=== PATIENT | female | born 1985 | race Caucasian/White ===

== ENCOUNTER 2016-07-25 09:39 | Emergency (ER) | payer OTHER ==
[~2016-07-25] VITALS: Ht 167.6 cm; Wt 86.2 kg
--- NOTE | 2016-07-25 10:31 | ED PSYCHIATRIC COMPLAINT ---
History of Present Illness General Chief Complaint: ETOH/Drug Related Complaint Stated Complaint: I'M DYING Source: patient, family, old records, EMS Exam Limitations: no limitations Vital Signs & Intake/Output Vital Signs & Intake/Output Vital Signs Date Time Temp Pulse Resp B/P Pulse O2 O2 Flow FiO2 Ox Delivery Rate 07/25 0946 137 20 138/94 99 Room Air Allergies Coded Allergies: No Known Allergies (07/25/16) Reconcile Medications No Known Home Medications Triage Note: PT BIBA FROM HOME WHERE SHE CALLED 911 BECAUSE HER FRIEND GAVE HER ONE PILL SHE STATES CBD OIL BUT NOT SURE IF THAT IS WHAT SHE TOOK. PT STATES "IM DYING, I'M GOING TO " PT STATES HX OF ANXIETY Triage Nurses Notes Reviewed? yes Onset: Just prior to arrival Duration: minute(s):, constant, continues in ED Timing: recent history Severity: severe Associated Symptoms: anxiety, impaired concentration LMP (ages 10-50): unknown : No Patient currently breastfeeds: No HPI: Prior to admission patient took unknown tablet soaked in CBD oil to help her sleep. She complains of a feeling of dread like she is going to . She denies fever chills nausea vomiting diarrhea abdominal pain chest pain shortness of breath headache dysuria rash bleeding suicidal ideation homicidal ideation hallucination. Mom reports the patient has had bizarre behavior over the last couple of days. Past History Travel History Traveled to [place] past 21 day No Medical History Any Pertinent Medical History? none Surgical History Surgical History: non-contributory Psychosocial History What is your primary language Syriac Tobacco Use: Never used ETOH Use: occasional use Illicit Drug Use: UTD Family History Hx Contributory? No Review of Systems Review of Systems Constitutional: Reports: no symptoms. EENTM: Reports: no symptoms. Respiratory: Reports: no symptoms. Cardiovascular: Reports: no symptoms. GI: Reports: no symptoms. Genitourinary: Reports: no symptoms. Musculoskeletal: Reports: no symptoms. Skin: Reports: no symptoms. Neurological/Psychological: Reports: see HPI, anxiety, confusion. Hematologic/Endocrine: Reports: no symptoms. Immunologic/Allergic: Reports: no symptoms. All Other Systems: Reviewed and Negative Physical Exam Physical Exam General Appearance: well developed/nourished, mild distress Head: atraumatic Eyes: Bilateral: PERRL, EOMI. Ears, Nose, Throat: normal pharynx, normal ENT inspection, hearing grossly normal Neck: normal inspection, supple Respiratory: normal breath sounds Cardiovascular: regular rate/rhythm Gastrointestinal: soft, non-tender Extremities: normal range of motion Neurological/Psychiatric: no motor/sensory deficits, awake, agitated, alert, anxious, stock receiver II-XII nml as tested, oriented x 3 Appearance/Memory/Insight: impaired insight Behavoir/Eye Contact/Speech: cooperative, normal speech Thoughts/Hallucinations: no apparent hallucination Skin: intact, normal color, warm/dry SAD PERSONS Done? patient not suicidal Progress Differential Diagnosis: drug intoxication, drug overdose, drug withdrawal, electrolyte abnormality, hypoglycemia Plan of Care: Orders Procedure Date/time Status ETHANOL 07/25 1005 Complete COMPREHENSIVE METABOLIC PANEL 07/25 100 Complete URINE 07/25 945 Complete URINE DRUG SCREEN FOR ER ONLY 07/25 945 Complete URINALYSIS 07/25 945 Complete Laboratory Tests 07/25/16 1020: Urine Opiates Screen < 100.00, Methadone Screen < 40, Barbiturate Screen < 60, Ur Phencyclidine Scrn < 6.00, Amphetamines Screen < 100, U Benzodiazepines Scrn < 85, Urine Cocaine Screen < 50, Urine Cannabis Screen > 80.00 H, Urine Color YEL, Urine Clarity CLEAR, Urine pH 6.0, Ur Specific [place] 1.025, Urine Protein TRACE H, Urine Ketones NEG, Urine Nitrite NEG, Urine Bilirubin NEG, Urine Urobilinogen 0.2, Ur Leukocyte Esterase TRACE H, Ur Microscopic SEDIMENT EXAMINED, Urine RBC 1-3, Urine WBC 1-3 H, Ur Epithelial Cells MOD H, Urine Hemoglobin NEG, Urine Glucose NEG, Urine Test NEGATIVE 07/25/16 1013: Anion Gap 14, Estimated GFR > 60, BUN/Creatinine Ratio 11.4, Glucose 146 H, Calcium 9.0, Total Bilirubin 0.4, AST 18, ALT 33, Alkaline Phosphatase 54, Total Protein 6.9, Albumin 4.0, Globulin 2.9, Albumin/Globulin Ratio 1.4, Serum Alcohol < 10.0 Rhythm Strip: sinus tachycardia Departure Departure Time of Disposition: 1155 Disposition: HOME OR SELF CARE Condition: Stable Clinical Impression Primary Impression: Drug abuse, marijuana Referrals: UNKNOWN (PCP/Family) Departure Forms: Customer Survey General Discharge Information Prescriptions: Current Visit Scripts No Known Home Medications
== END 2016-07-25 12:14 ==
LOC: ERH 09:39
DX: F12.10 Cannabis abuse, uncomplicated (principal)
CPT/HCPCS: 80307; 81001; 81025; 96360; G0480